=== PATIENT | female | born 2000 | race African-American/Black ===

== ENCOUNTER 2025-09-26 10:24 | Emergency (ER) | payer MEDICAID ==
[~2025-09-26] VITALS: Ht 175.3 cm; Wt 68.0 kg
[2025-09-26 10:35] VITALS: O2SAT 100
[2025-09-26 11:19] LABS: BASOPHILS % 0.3 % (0.0-2.0); EOSINOPHILS % 0.6 % (0.0-5.0); HEMATOCRIT. 40.0 % (36.0-48.0); HEMOGLOBIN. 13.4 g/dL (12.0-16.0); LYMPHOCYTES % 19.0 % (20.0-50.0); MEAN PLATELET VOLUME 9.3 fl (7.4-10.4); MONOCYTES % 10.4 % (2.0-8.0); NEUTROPHILS % 69.7 % (40.0-76.0); PLATELET 155 x1000/uL (130-400); RED BLOOD CELL COUNT 4.42 mill/uL (4.2-5.4); RED CELL DISTRIBUTION WIDTH 13.2 % (11.6-14.6)
[2025-09-26 11:47] LABS: CREATININE 0.9 mg/dL (0.6-1.0); UREA NITROGEN BLOOD 6 mg/dL (9-23)
[2025-09-26 11:48] LABS: ASPARTATE AMINOTRANSFERASE 32 IU/L (<34); PROTEIN TOTAL 7.5 g/dL (6.0-8.3)
[2025-09-26 11:49] LABS: BILIRUBIN DIRECT 0.3 mg/dL (<=3.0); BILIRUBIN TOTAL 1.2 mg/dL (0.1-1.0)
[2025-09-26 12:13] LABS: HCG SCREEN NEGATIVE
[2025-09-26] MEDS: ACETAMINOPHEN 325MG TABLET PO ONE (12:32)
[2025-09-26 13:32] LABS: CLARITY URINE TURBID (CLEAR); COLOR URINE DARK YELLOW (YELLOW); GLUCOSE URINE NEGATIVE (NEGATIVE); KETONES URINE NEGATIVE (NEGATIVE); LEUKOCYTE ESTERASE URINE 3+ (NEGATIVE); NITRITE URINE POSITIVE (NEGATIVE); OCCULT BLOOD URINE 2+ (NEGATIVE); PH URINE 7.0 (4.5-8.0); PROTEIN URINE 3+ (NEGATIVE); SPECIFIC GRAVITY URINE 1.019 (1.005-1.030); UROBILINOGEN URINE 1.0 E.U./dL (0.2-1.0)
[2025-09-26 13:43] LABS: BACTERIA URINE 3+; RBC URINE 25-50 /hpf (0-2); SQUAMOUS EPITHELIAL CELL URINE 2+ /lpf (RARE/1+); WBC URINE TNTC /hpf (0-2); YEAST URINE NONE SEEN
[2025-09-26] MEDS ORDERED: CEPH500T MT (13:46)
[2025-09-26 14:23] VITALS: BP 110/59; PULSE 65; RESP 17; TEMP 36.6; O2SAT 100
== END 2025-09-26 14:36 | disposition home or self-care (01) ==
LOC: ER 10:24
DX: N39.0 Urinary tract infection, site not specified (principal)
CPT/HCPCS: 36415; 74176; 76830; 76856; 80048; 80076; 81003; 81025; 84703; 85025; 87077; 87186; 99284